=== PATIENT | female | born 1950 | race Asian ===

== ENCOUNTER 2017-04-06 17:19 | Emergency (ER) | payer OTHER, MEDICAID ==
[~2017-04-06] VITALS: Ht 160 cm; Wt 72.6 kg
[2017-04-06 19:36] VITALS: BP 181/95
== END 2017-04-06 19:37 | disposition home or self-care (01) ==
LOC: ED 17:19
DX: R51 Headache (principal); R11.0 Nausea; E11.9 Type 2 diabetes mellitus without complications; E78.00 Pure hypercholesterolemia, unspecified; Z79.4 Long term (current) use of insulin
CPT/HCPCS: Q0162

== ENCOUNTER 2017-04-07 08:59 | Emergency (ER) | payer OTHER, MEDICAID ==
[2017-04-07 10:53] VITALS: BP 174/71
== END 2017-04-07 10:53 | disposition home or self-care (01) ==
LOC: ED 08:59
DX: I10 Essential (primary) hypertension (principal); E11.9 Type 2 diabetes mellitus without complications; E78.00 Pure hypercholesterolemia, unspecified

== ENCOUNTER 2017-04-16 21:39 | Emergency (ER) | payer OTHER, MEDICAID ==
[2017-04-17 01:19] VITALS: BP 152/71
== END 2017-04-17 01:19 | disposition home or self-care (01) ==
LOC: ED 21:39
DX: R51 Headache (principal); R11.2 Nausea with vomiting, unspecified; I10 Essential (primary) hypertension; E11.9 Type 2 diabetes mellitus without complications; E78.00 Pure hypercholesterolemia, unspecified; Z79.84 Long term (current) use of oral hypoglycemic drugs
CPT/HCPCS: J1200; J2765; J3490; J7030

== ENCOUNTER 2017-05-20 17:27 | Emergency (ER) | payer OTHER, MEDICAID ==
[~2017-05-20] VITALS: Ht 162.6 cm; Wt 69.6 kg
[2017-05-20 17:39] VITALS: Ht 162.6 cm; Wt 69.6 kg
[2017-05-20 18:38] LABS: BASOPHIL % 0.4 % (0-2); PLATELET COUNT 332 x10^3mcL (130-400); RED CELL DISTRIBUTION WIDTH 14.2 % (11.5-14.5)
[2017-05-20 18:53] LABS: CARBON DIOXIDE 26.1 mmol/L (21-32); CREATININE SERUM 1.1 mg/dL (0.6-1.0); POTASSIUM SERUM 4.4 mmol/L (3.5-5.1)
[2017-05-20 19:06] LABS: ALBUMIN 3.7 g/dL (3.4-5.0); BILIRUBIN TOTAL 0.3 mg/dL (0.20-1.00); MAGNESIUM 1.8 mg/dL (1.8-2.4); T4(THYROXINE) 7.3 ug/dL (4.7-13.3); TOTAL PROTEIN, SERUM 7.9 g/dL (6.4-8.2)
[2017-05-20 20:17] LABS: UA SPECIFIC GRAVITY 1.015 (1.005-1.035); microscopic required? YES; urine erythrocyte NEGATIVE (NEGATIVE)
[2017-05-20 20:25] LABS: AMPHETAMINE QUAL UR NONE DETECTED (NEG <=1000)
[2017-05-20 22:19] VITALS: BP 171/80
== END 2017-05-20 22:19 | disposition home or self-care (01) ==
LOC: ED 17:27
PROVIDERS: Emergency Medicine
DX: R00.2 Palpitations (principal); I10 Essential (primary) hypertension; E78.00 Pure hypercholesterolemia, unspecified; E11.9 Type 2 diabetes mellitus without complications
CPT/HCPCS: 36415; 82962; 83880

== ENCOUNTER 2017-08-08 00:22 | Emergency (ER) | payer OTHER, MEDICAID ==
[~2017-08-08] VITALS: Ht 152.4 cm; Wt 72.6 kg
[2017-08-08 00:32] VITALS: Ht 152.4 cm; Wt 72.6 kg
[2017-08-08 02:21] VITALS: BP 117/70
== END 2017-08-08 02:21 | disposition home or self-care (01) ==
LOC: ED 00:22
DX: R04.0 Epistaxis (principal); I10 Essential (primary) hypertension; E11.9 Type 2 diabetes mellitus without complications; E78.00 Pure hypercholesterolemia, unspecified
CPT/HCPCS: J3490

== ENCOUNTER 2017-08-11 18:31 | Emergency (ER) | payer OTHER, MEDICAID ==
[~2017-08-11] VITALS: Ht 154.9 cm; Wt 71.7 kg
[2017-08-11 19:53] VITALS: Ht 154.9 cm; Wt 71.7 kg
[2017-08-11 21:14] VITALS: BP 164/76
== END 2017-08-11 21:14 | disposition home or self-care (01) ==
LOC: ED 18:31
DX: R04.0 Epistaxis (principal); I10 Essential (primary) hypertension; E11.9 Type 2 diabetes mellitus without complications; E78.00 Pure hypercholesterolemia, unspecified